=== PATIENT | male | born 2000 | race Caucasian/White ===

== ENCOUNTER 2023-06-29 21:42 | Emergency (ER) | payer OTHER ==
[2023-06-29 23:02] LABS: INR 1.01; PROTHROMBIN TIME 10.8 SECONDS (9.7-12.0)
[2023-06-29 23:03] LABS: PTT,PARTIAL THROMBOPLSTIN TIME 27.6 SECONDS (21.7-31.4)
== END 2023-06-30 00:30 | disposition home or self-care (01) ==
LOC: JD.ED 21:42
DX: I80.01 Phlebitis and thrombophlebitis of superficial vessels of right lower extremity (principal); F17.210 Nicotine dependence, cigarettes, uncomplicated
CPT/HCPCS: 36415; 85610; 85730; 93970; 93970-26; 99283; 99284